=== PATIENT | male | born 1995 | race African-American/Black ===

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

== ENCOUNTER 2017-08-20 03:07 | Emergency (ER) | payer OTHER ==
[2017-08-20] MEDS: AUGMENTIN 875 MG TAB PO (04:27)
== END 2017-08-20 05:18 | disposition home or self-care (01) ==
LOC: M ED 05:18
DX: S60.572A Other superficial bite of hand of left hand, initial encounter (principal); Y04.1XXA Assault by human bite, initial encounter; Y92.410 Unspecified street and highway as the place of occurrence of the external cause
CPT/HCPCS: 99282

== ENCOUNTER → 2023-11-04 | Outpatient (REF) | payer OTHER ==
[~2023-11-04] MED LIST: AUGM500T34 PO; CETI10TA; IBUP-1022 PO; SULF1POW
== END ==
LOC: M SMT 12:18
PROVIDERS: ATTEND Urology
DX: Z30.2 Encounter for sterilization (principal)

== ENCOUNTER → 2024-05-25 | Outpatient (REF) | payer OTHER ==
[2024-05-25 12:00] LABS: SEMEN APPEARANCE OPAQUE (OPAQUE); SEMEN VISCOSITY LIQUID (LIQUID); SEMEN VOLUME 2.1 ml (2.0-5.0); WBC CONCENTRATION <=1 M/ml (<=1 M/ml)
== END ==
LOC: M SMT 11:07
PROVIDERS: ATTEND Urology
DX: Z30.8 Encounter for other contraceptive management (principal)